=== PATIENT | male | born 1970 | race Two or more races ===

== ENCOUNTER 2017-12-03 13:14 | Inpatient (IN) | payer MEDICAID ==
[~2017-12-03] VITALS: Ht 175.3 cm; Wt 86.2 kg
[2017-12-03 14:04] LABS: Eosinophils # (auto) 0.1 uL; Eosinophils % (auto) 0.9 % (0.0-7.0); Hemoglobin 7.7 g/dL (13.5-17.5); Monocytes # (auto) 0.5 uL; Neutrophils # (auto) 4.2 uL; Platelet Count (auto) 188 10^3/uL (140-450)
[2017-12-03 14:06] LABS: Basophils # (auto) 0 uL; Basophils % (auto) 0.8 % (0.0-2.0); Hematocrit 22.8 % (41.0-53.0); Lymphocytes % (auto) 16.7 % (10.0-50.0); Mean Corpuscular Hemoglobin 30.2 pg (28.0-32.0); Mean Corpuscular Hgb Conc. 33.8 g/dL (32.0-36.0); Mean Corpuscular Volume 89.6 fL (80.0-100.0); Monocytes % (auto) 9.2 % (0.0-12.0); Neutrophils % (auto) 72.4 % (37.0-80.0); Nucleated Red Blood Cells % 0.4 %; Red Blood Cells 2.54 10^6/uL (4.5-5.90); Red Cell Distribution Width 17.2 % (11.8-14.3); White Blood Cell 5.8 10^3/uL (4.4-10.8)
[2017-12-03 14:23] LABS: Albumin 3.2 g/dL (3.4-5.0); BUN/Creatinine Ratio 9.3; Bilirubin, Total 0.2 mg/dL (0.2-1.0); Calcium 8.3 mg/dL (8.5-10.1); Total Protein 6.7 g/dL (6.4-8.2)
[2017-12-03] MEDS ORDERED: SODIUM CHLORIDE 0.9% 500 ML IVB ONE (15:28)
[2017-12-03] MEDS ORDERED: PANTOPRAZOLE 40 MG/10 ML VIAL IV STA (15:28)
[2017-12-03] MEDS ORDERED: IOHEXOL 300 MG/ML 100ML BOTTLE IJ ONE (15:31)
[2017-12-03] MEDS ORDERED: MORPHINE SULFATE 8mg/ml INJ SDV IV PRN ×2 (16:30)
[2017-12-03] MEDS ORDERED: DOCUSATE SOD 100 MG CAP PO PRN (16:30)
[2017-12-03] MEDS ORDERED: ONDANSETRON HCL 4 MG/2 ML VIAL IV PRN (16:30)
[2017-12-03] MEDS ORDERED: ALUM & MAG HYDROX-SIMETH LIQ(MAALOX) 30 ML PO PRN (16:30)
[2017-12-03] MEDS ORDERED: NITROGLYCERIN 0.4 MG SL TAB SL PRN (16:30)
[2017-12-03] MEDS ORDERED: TEMAZEPAM 15 MG CAP PO PRN (16:30)
[2017-12-03] MEDS ORDERED: cloNIDine HCL 0.1 MG TAB PO PRN (16:30)
[2017-12-03] MEDS ORDERED: HYDROcodone-ACET 5/325MG TAB PO PRN (16:30)
[2017-12-03] MEDS ORDERED: ACETAMINOPHEN 325 MG TAB PO PRN (16:30)
[2017-12-03 16:47] LABS: Basophils # (auto) 0 uL; Eosinophils # (auto) 0 uL; Hematocrit 22.9 % (41.0-53.0); Lymphocytes # (auto) 1.2 uL; Mean Corpuscular Hemoglobin 29.8 pg (28.0-32.0); Mean Corpuscular Volume 89.1 fL (80.0-100.0); Nucleated Red Blood Cells % 0.3 %; Red Blood Cells 2.57 10^6/uL (4.5-5.90)
[2017-12-03] MEDS: SODIUM CHLORIDE 0.9% 1,000 ML IV SCH (16:49)
[2017-12-03 16:52] LABS: INR 0.89 (0.9-1.15); Partial Thromboplastin Time 23.3 sec (22.64-33.71); Prothrombin Time 9.7 sec (9.37-12.3)
[2017-12-03] MEDS: BOOST PLUS 8 ounce PO SCH (18:01)
[2017-12-03 18:06] LABS: Basophils % (auto) 0.6 % (0.0-2.0); Eosinophils % (auto) 0.7 % (0.0-7.0); Hemoglobin 7.6 g/dL (13.5-17.5); Lymphocytes % (auto) 20.9 % (10.0-50.0); Mean Corpuscular Hgb Conc. 33.4 g/dL (32.0-36.0); Monocytes # (auto) 0.6 uL; Monocytes % (auto) 9.8 % (0.0-12.0); Platelet Count (auto) 185 10^3/uL (140-450); Red Cell Distribution Width 17.4 % (11.8-14.3); White Blood Cell 5.8 10^3/uL (4.4-10.8)
[2017-12-03 22:00] VITALS: BP 141/87
[2017-12-03] MEDS: FAMOTIDINE 20 MG TAB PO SCH (22:03)
[2017-12-03 22:31] LABS: Hemoglobin 6.7 g/dL (13.5-17.5)
[2017-12-03 22:45] VITALS: BP 141/87
[2017-12-04] VITALS (14 sets, daily range): BP systolic 99–133; BP diastolic 61–86
[2017-12-04 03:12] LABS: Urine WBC None Seen /hpf (0 - 3)
[2017-12-04 03:55] LABS: Urine Bacteria NONE SEEN /hpf (None Seen); Urine Blood Negative /uL (Negative); Urine Specific Gravity 1.016 (1.001-1.035)
[2017-12-04 08:11] LABS: Basophils # (auto) 0 uL; Basophils % (auto) 0.4 % (0.0-2.0); Eosinophils # (auto) 0.1 uL; Eosinophils % (auto) 1.5 % (0.0-7.0); Hematocrit 25.8 % (41.0-53.0); Hemoglobin 8.8 g/dL (13.5-17.5); Lymphocytes # (auto) 0.8 uL; Lymphocytes % (auto) 17.2 % (10.0-50.0); Mean Corpuscular Hemoglobin 29.8 pg (28.0-32.0); Mean Corpuscular Hgb Conc. 33.9 g/dL (32.0-36.0); Mean Corpuscular Volume 87.9 fL (80.0-100.0); Monocytes # (auto) 0.5 uL; Monocytes % (auto) 10.3 % (0.0-12.0); Neutrophils # (auto) 3.4 uL; Neutrophils % (auto) 70.6 % (37.0-80.0); Nucleated Red Blood Cells % 0.1 %; Platelet Count (auto) 162 10^3/uL (140-450); Red Blood Cells 2.94 10^6/uL (4.5-5.90); Red Cell Distribution Width 16.1 % (11.8-14.3); White Blood Cell 4.8 10^3/uL (4.4-10.8)
[2017-12-04] MEDS: MULTIPLE VITAMIN TAB PO SCH (09:57)
[2017-12-04] MEDS: PANTOPRAZOLE 40 MG/10 ML VIAL IV SCH (09:57)
[2017-12-04] MEDS: FAMOTIDINE 20 MG TAB PO SCH ×2 (09:57→21:21)
[2017-12-04] MEDS: BOOST PLUS 8 ounce PO SCH ×3 (09:57→18:00)
[2017-12-04] MEDS ORDERED: GOLYTELY 4L KIT PO ONE (14:00)
[2017-12-04] MEDS: SODIUM CHLORIDE 0.9% 1,000 ML IV SCH (21:30)
[2017-12-05] MEDS: SODIUM CHLORIDE 0.9% 1,000 ML IV SCH ×2 (01:46→22:05)
[2017-12-05] MEDS ORDERED: GOLYTELY 4L KIT PO ONE (06:00)
[2017-12-05 06:01] VITALS: BP 122/77
[2017-12-05 06:39] LABS: Hematocrit 27.5 % (41.0-53.0); Hemoglobin 9.4 g/dL (13.5-17.5)
[2017-12-05] MEDS: BOOST PLUS 8 ounce PO SCH ×3 (08:00→17:55)
[2017-12-05 09:00] VITALS: BP 139/81
[2017-12-05] MEDS ORDERED: diphenhdrAMINE HCL 50 MG/1 ML VL ONE (09:18)
[2017-12-05] MEDS: MULTIPLE VITAMIN TAB PO SCH (10:00)
[2017-12-05] MEDS: PANTOPRAZOLE 40 MG/10 ML VIAL IV SCH (10:00)
[2017-12-05] MEDS: FAMOTIDINE 20 MG TAB PO SCH ×2 (10:00→22:06)
[2017-12-05 12:14] VITALS: BP 132/85
[2017-12-05] MEDS: MIDAZOLAM HCL 5 MG/ML-1ML VIAL ONE ×3 (12:46→12:55)
[2017-12-05] MEDS: fentaNYL CITRATE 100 MCG/2 ML VL ONE ×2 (12:46→12:51)
[2017-12-05 16:27] VITALS: BP 123/78
[2017-12-05 22:03] VITALS: BP 119/73
[2017-12-06 05:30] VITALS: BP 120/68
[2017-12-06] MEDS: BOOST PLUS 8 ounce PO SCH ×2 (08:32→12:00)
[2017-12-06 09:00] VITALS: BP 130/82
[2017-12-06] MEDS: MULTIPLE VITAMIN TAB PO SCH (09:56)
[2017-12-06] MEDS: FAMOTIDINE 20 MG TAB PO SCH (09:57)
[2017-12-06] MEDS: PANTOPRAZOLE 40 MG/10 ML VIAL IV SCH (09:57)
[2017-12-06] MEDS: SODIUM CHLORIDE 0.9% 1,000 ML IV SCH (10:04)
== END 2017-12-06 12:00 | disposition home or self-care (01) | DRG 254 ==
LOC: ER 13:14 → TELE 13:15 → TELE-CENTR 21:35
PROVIDERS: ADMIT Internal Medicine; ATTEND Internal Medicine Pulmonary Disease
PROC: 30233N1 Transfusion of Nonautologous Red Blood Cells into Peripheral Vein, Percutaneous Approach (ICD-10-PCS; 2017-12-04)
PROC: 0DJD8ZZ Inspection of Lower Intestinal Tract, Via Natural or Artificial Opening Endoscopic (ICD-10-PCS; principal; 2017-12-05 12:37)
DX: K64.8 Other hemorrhoids (principal); J84.10 Pulmonary fibrosis, unspecified; E44.0 Moderate protein-calorie malnutrition; E83.51 Hypocalcemia; D62 Acute posthemorrhagic anemia; E88.09 Other disorders of plasma-protein metabolism, not elsewhere classified; K64.4 Residual hemorrhoidal skin tags; N40.0 Benign prostatic hyperplasia without lower urinary tract symptoms; F41.9 Anxiety disorder, unspecified; I12.9 Hypertensive chronic kidney disease with stage 1 through stage 4 chronic kidney disease, or unspecified chronic kidney disease; N18.2 Chronic kidney disease, stage 2 (mild); Z68.28 Body mass index [BMI] 28.0-28.9, adult
CPT/HCPCS: 36415; 36430; 71045; 74177; 80053; 81001; 83690; 83735; 84443; 85014; 85018; 85025; 85610; 85730; 86850; 86900; 86901; 86920; 93005; 94761; 96361; 96374; C9113; J2250

== ENCOUNTER 2018-01-07 09:35 | Emergency (ER) | payer MEDICAID ==
[~2018-01-07] VITALS: Ht 175.3 cm; Wt 81.6 kg
[2018-01-07 09:50] VITALS: BP 136/86
[2018-01-07 10:19] LABS: Basophils # (auto) 0 uL; Basophils % (auto) 0.7 % (0.0-2.0); Eosinophils # (auto) 0 uL; Eosinophils % (auto) 0.9 % (0.0-7.0); Hematocrit 38.7 % (41.0-53.0); Hemoglobin 12.9 g/dL (13.5-17.5); Lymphocytes # (auto) 1.2 uL; Lymphocytes % (auto) 26.4 % (10.0-50.0); Mean Corpuscular Hemoglobin 28.3 pg (28.0-32.0); Mean Corpuscular Hgb Conc. 33.3 g/dL (32.0-36.0); Mean Corpuscular Volume 84.9 fL (80.0-100.0); Monocytes # (auto) 0.3 uL; Monocytes % (auto) 7.3 % (0.0-12.0); Neutrophils # (auto) 2.9 uL; Neutrophils % (auto) 64.7 % (37.0-80.0); Nucleated Red Blood Cells % 0.1 %; Platelet Count (auto) 189 10^3/uL (140-450); Red Blood Cells 4.55 10^6/uL (4.5-5.90); Red Cell Distribution Width 15.1 % (11.8-14.3); White Blood Cell 4.6 10^3/uL (4.4-10.8)
[2018-01-07 10:39] LABS: Albumin 3.8 g/dL (3.4-5.0); BUN/Creatinine Ratio 14.3; Bilirubin, Total 0.2 mg/dL (0.2-1.0); Potassium 4.3 mmol/L (3.5-5.1); Total Protein 7.5 g/dL (6.4-8.2)
== END 2018-01-07 11:30 | disposition home or self-care (01) ==
LOC: ER 09:35
DX: K64.9 Unspecified hemorrhoids (principal); I12.9 Hypertensive chronic kidney disease with stage 1 through stage 4 chronic kidney disease, or unspecified chronic kidney disease; N18.9 Chronic kidney disease, unspecified
CPT/HCPCS: 36415; 80053; 85025; 99284; J7030

== ENCOUNTER 2018-08-11 16:01 | Emergency (ER) | payer MEDICAID ==
[~2018-08-11] VITALS: Ht 175.3 cm; Wt 86.2 kg
[2018-08-11 16:23] VITALS: BP 140/85
== END 2018-08-11 19:41 | disposition home or self-care (01) ==
LOC: ER 16:05
DX: K64.9 Unspecified hemorrhoids (principal); I11.0 Hypertensive heart disease with heart failure; I50.9 Heart failure, unspecified; D64.9 Anemia, unspecified

== ENCOUNTER 2018-08-16 18:13 | Inpatient (IN) | payer MEDICAID ==
[~2018-08-16] VITALS: Ht 175.3 cm; Wt 49.4 kg
[2018-08-16 19:18] LABS: Eosinophils # (auto) 0.1 uL; Monocytes # (auto) 0.5 uL; Neutrophils # (auto) 4.7 uL; Nucleated Red Blood Cells % 0.1 %; Red Cell Distribution Width 14.7 % (11.8-14.3)
[2018-08-16 19:20] LABS: Basophils # (auto) 0 uL; Basophils % (auto) 0.6 % (0.0-2.0); Eosinophils % (auto) 0.9 % (0.0-7.0); Hematocrit 19.8 % (41.0-53.0); Lymphocytes # (auto) 1.4 uL; Lymphocytes % (auto) 20.9 % (10.0-50.0); Mean Corpuscular Hemoglobin 27.4 pg (28.0-32.0); Mean Corpuscular Hgb Conc. 33.3 g/dL (32.0-36.0); Monocytes % (auto) 7.4 % (0.0-12.0); Neutrophils % (auto) 70.2 % (37.0-80.0); Platelet Count (auto) 276 10^3/uL (140-450); Red Blood Cells 2.42 10^6/uL (4.5-5.90); White Blood Cell 6.7 10^3/uL (4.4-10.8)
[2018-08-16 19:22] LABS: Hemoglobin 6.6 g/dL (13.5-17.5)
[2018-08-16 19:31] LABS: INR 0.92 (0.9-1.15); Partial Thromboplastin Time 25.9 sec (23.78-33.04); Prothrombin Time 9.9 sec (9.27-12.13)
[2018-08-16] MEDS ORDERED: SODIUM CHLORIDE 0.9% 1,000 ML IV ONE ×2 (19:45→20:00)
[2018-08-16] MEDS ORDERED: PANTOPRAZOLE 40 MG/10 ML VIAL IV ONE (19:45)
[2018-08-16] MEDS ORDERED: PHYTONADIONE (VIT K)10 MG/ML 1ML VIAL SUBCUT ONE (19:45)
[2018-08-16 19:49] LABS: Albumin 3.1 g/dL (3.4-5.0); Calcium 8.1 mg/dL (8.5-10.1); Potassium 3.4 mmol/L (3.5-5.1)
[2018-08-16 19:52] LABS: BUN/Creatinine Ratio 10.2; Bilirubin, Total 0.2 mg/dL (0.2-1.0); Total Protein 6.9 g/dL (6.4-8.2)
[2018-08-16 22:13] VITALS: BP 134/83
[2018-08-17] MEDS ORDERED: NITROGLYCERIN 0.4 MG SL TAB SL PRN (00:45)
[2018-08-17] MEDS: SODIUM CHLORIDE 0.9% 1,000 ML IV SCH ×2 (00:45→12:14)
[2018-08-17] MEDS ORDERED: MORPHINE SULFATE 4 MG/ML SYR/VIAL IV PRN (00:45)
[2018-08-17] MEDS ORDERED: ONDANSETRON HCL 4 MG/2 ML VIAL IV PRN (00:45)
--- NOTE | 2018-08-17 03:07 | NUR ---
Telemetry admit from [facility] admitted to Telemetry unit after SBAR received. Patient oriented to Arleen shaw RN, unit, room, bed, and unit policies regarding patient care and visiting hours. Patient now on continuous telemetry monitoring, tele box # 26 and telemetry reading on arrival to unit is SR 87. Patient placed on bedside oxygen, weighed by bedscale and encouraged to call if they need something. All questions and concerns addressed, patient verbalized understanding. Note: Came per wheelchair awake alert oriented x 4 not in respiratory distress.
[2018-08-17 03:10] VITALS: BP 118/73
[2018-08-17 05:00] VITALS: BP 118/73
[2018-08-17 05:55] LABS: Hematocrit 22.8 % (41.0-53.0); Hemoglobin 7.5 g/dL (13.5-17.5)
--- NOTE | 2018-08-17 07:12 | NUR ---
Report given to Dino Negron to assume care, to follow-up to the hospitalist the new result of hgb. of 7.5.
--- NOTE | 2018-08-17 07:20 | NUR ---
OPENING NOTE Assumed care of patient from NOC RNMarilyn. Patient awake and alert with no S/S of distress/SOB or pain. Instructed on POC and to call for assist PRN, verbalized understanding. Bed in lowest, locked position with side rails up x2 and call light within reach. Will continue to monitor for changes Q1hr and PRN.
[2018-08-17] MEDS ORDERED: INFLUENZA QUAD 2018-2019 0.5 ML SYRG IM ONE (08:15)
[2018-08-17 09:00] VITALS: BP 118/75
[2018-08-17] MEDS: PANTOPRAZOLE 40 MG/10 ML VIAL IV SCH ×2 (11:10→21:23)
[2018-08-17 12:05] LABS: Urine WBC None Seen /hpf (0 - 3)
[2018-08-17 12:18] LABS: Urine Bacteria NONE SEEN /hpf (None Seen); Urine Blood Negative /uL (Negative); Urine Mucus FEW (None Seen)
[2018-08-17] MEDS ORDERED: POTASSIUM CHL 20 Meq TABLET PO ONE (12:30)
[2018-08-17 12:44] VITALS: BP 120/76
[2018-08-17 16:46] LABS: Basophils # (auto) 0 uL; Lymphocytes # (auto) 1.1 uL; Monocytes # (auto) 0.4 uL; Neutrophils # (auto) 4.6 uL; White Blood Cell 6.2 10^3/uL (4.4-10.8)
[2018-08-17 16:48] LABS: Basophils % (auto) 0.3 % (0.0-2.0); Eosinophils # (auto) 0 uL; Eosinophils % (auto) 0.7 % (0.0-7.0); Hematocrit 24.3 % (41.0-53.0); Hemoglobin 8.3 g/dL (13.5-17.5); Lymphocytes % (auto) 18.1 % (10.0-50.0); Mean Corpuscular Hemoglobin 28.7 pg (28.0-32.0); Mean Corpuscular Hgb Conc. 33.9 g/dL (32.0-36.0); Mean Corpuscular Volume 84.6 fL (80.0-100.0); Monocytes % (auto) 6.6 % (0.0-12.0); Neutrophils % (auto) 74.3 % (37.0-80.0); Platelet Count (auto) 228 10^3/uL (140-450); Red Blood Cells 2.88 10^6/uL (4.5-5.90); Red Cell Distribution Width 15.4 % (11.8-14.3)
--- NOTE | 2018-08-17 16:50 | NUR ---
FLU VACCINE Patient has decided to opt of receiving the flu vaccine at this time.
[2018-08-17 18:00] VITALS: BP 123/72
--- NOTE | 2018-08-17 19:20 | NUR ---
CLOSING NOTE Endorsed care of patient to NOC RN, Marilyn.
--- NOTE | 2018-08-17 19:34 | NUR ---
Called/paged Dr. Galdamez called re:patients diet . Waiting for call back. Continue care.
--- NOTE | 2018-08-17 19:34 | NUR ---
Opening Shift Note Assumed care of patient, awake and alert. No S/S of distress/SOB or pain. Instructed on POC and to call for assist PRN, will continue to monitor for changes Q1hr and PRN.
[2018-08-17 21:55] VITALS: BP 128/75
[2018-08-18 04:46] VITALS: BP 116/69
[2018-08-18] MEDS: SODIUM CHLORIDE 0.9% 1,000 ML IV SCH ×3 (05:15→22:45)
[2018-08-18 06:37] LABS: Basophils # (auto) 0 uL; Eosinophils # (auto) 0.1 uL; Monocytes # (auto) 0.5 uL; Neutrophils # (auto) 4.3 uL; Nucleated Red Blood Cells % 0.1 %; Red Blood Cells 2.92 10^6/uL (4.5-5.90); White Blood Cell 5.9 10^3/uL (4.4-10.8)
[2018-08-18 06:48] LABS: Basophils % (auto) 0.2 % (0.0-2.0); Eosinophils % (auto) 1.5 % (0.0-7.0); Hematocrit 24.6 % (41.0-53.0); Hemoglobin 8.3 g/dL (13.5-17.5); Lymphocytes % (auto) 16.8 % (10.0-50.0); Mean Corpuscular Hemoglobin 28.4 pg (28.0-32.0); Mean Corpuscular Hgb Conc. 33.6 g/dL (32.0-36.0); Mean Corpuscular Volume 84.3 fL (80.0-100.0); Monocytes % (auto) 8.5 % (0.0-12.0); Platelet Count (auto) 239 10^3/uL (140-450); Red Cell Distribution Width 15.4 % (11.8-14.3)
[2018-08-18 06:54] LABS: Potassium 4.1 mmol/L (3.5-5.1)
[2018-08-18 06:58] LABS: BUN/Creatinine Ratio 8.3; Calcium 8.2 mg/dL (8.5-10.1); Magnesium 2.1 mg/dL (1.6-2.6)
--- NOTE | 2018-08-18 07:26 | NUR ---
Report given to Dino Negron to assume care.
[2018-08-18 08:00] VITALS: BP 112/71
[2018-08-18] MEDS: PANTOPRAZOLE 40 MG/10 ML VIAL IV SCH ×2 (10:16→21:16)
[2018-08-18 12:00] VITALS: BP 138/77
[2018-08-18 16:00] VITALS: BP 119/77
--- NOTE | 2018-08-18 19:02 | NUR ---
CLOSING NOTE Endorsed care of patient to NOC RN, Marilyn.
[2018-08-18 21:35] VITALS: BP 122/74
[2018-08-19 04:12] VITALS: BP 92/54
[2018-08-19 06:29] LABS: Basophils # (auto) 0 uL; Eosinophils # (auto) 0.1 uL; Lymphocytes # (auto) 1.1 uL; Monocytes # (auto) 0.6 uL; Neutrophils # (auto) 5.2 uL
[2018-08-19 06:40] LABS: Basophils % (auto) 0.2 % (0.0-2.0); Eosinophils % (auto) 1.6 % (0.0-7.0); Hematocrit 25.2 % (41.0-53.0); Hemoglobin 8.5 g/dL (13.5-17.5); Lymphocytes % (auto) 15.7 % (10.0-50.0); Mean Corpuscular Hemoglobin 28.3 pg (28.0-32.0); Mean Corpuscular Hgb Conc. 33.7 g/dL (32.0-36.0); Monocytes % (auto) 8.1 % (0.0-12.0); Neutrophils % (auto) 74.4 % (37.0-80.0); Platelet Count (auto) 264 10^3/uL (140-450); Red Cell Distribution Width 15.8 % (11.8-14.3)
[2018-08-19 07:05] LABS: Potassium 4.4 mmol/L (3.5-5.1)
[2018-08-19 07:09] LABS: BUN/Creatinine Ratio 9.1; Calcium 8.4 mg/dL (8.5-10.1); Magnesium 2.1 mg/dL (1.6-2.6)
[2018-08-19] MEDS ORDERED: INFLUENZA QUAD 2018-2019 0.5 ML SYRG IM ONE (07:30)
--- NOTE | 2018-08-19 07:37 | NUR ---
Report given to Paulina Fuentes to assume care.
[2018-08-19 08:00] VITALS: BP 105/64
--- NOTE | 2018-08-19 08:00 | NUR ---
Opening Shift Note Assumed care of patient, awake and alert. No S/S of distress/SOB or pain. Instructed on POC and to call for assist PRN, will continue to monitor for changes Q1hr and PRN. Bed is in the lowest position and call light is within reach.
[2018-08-19] MEDS ORDERED: SODIUM CHLORIDE LOCK 10 ML ONE (08:37)
[2018-08-19] MEDS ORDERED: fentaNYL CITRATE 100 MCG/2 ML VL ONE (08:37)
[2018-08-19] MEDS ORDERED: diphenhdrAMINE HCL 50 MG/1 ML VL ONE (08:37)
[2018-08-19] MEDS ORDERED: MIDAZOLAM HCL 5 MG/ML-1ML VIAL ONE (08:37)
[2018-08-19] MEDS: PANTOPRAZOLE 40 MG/10 ML VIAL IV SCH (09:14)
--- NOTE | 2018-08-19 09:30 | NUR ---
Patient off of unit for procedure
[2018-08-19] MEDS ORDERED: LIDOCAINE VISCOUS 2% 15ML UD ONE (10:04)
--- NOTE | 2018-08-19 10:40 | NUR ---
Patient back on unit from procedure
[2018-08-19] MEDS: SODIUM CHLORIDE 0.9% 1,000 ML IV SCH (10:55)
[2018-08-19 12:00] VITALS: BP 120/74
[2018-08-19 15:18] VITALS: BP 120/74
--- NOTE | 2018-08-19 15:50 | NUR ---
Discharge instructions given as ordered. Encourage to follow up with PCP in one week as instructed. Patient to follow up with Primary MD in 1-2 weeks Consider referral to higher level of care for capsule endoscopy procedure. Go to [facility] ER if rectal bleeding recurs. [phone] [address] [place] [address] Patient has no primary MD & No insurance or Emergency [facility]: Patient reffered to [facility]. Patient given uret care coupon Sunday-Sunday 8A-8P [phone] ext [phone] [id number] Patient also referred to: -[facility] [phone] [id number] [facility] [id number] -[facility]-[phone] [address] [place] [address] All questions and concerns addressed. Patient verbalized understanding. Medication reconciliation form completed and copy given to patient. No Home medications held in Pharmacy returned to patient, and no needed vaccines. IV removed with catheter intact, pressure dressing applied. Telemetry unit returned to [facility].
--- NOTE | 2018-08-19 16:05 | NUR ---
Patient refuses wheelchair. Patient ambulates off of unit with all personal belongings, accompanied by staff. No distress noted at time of departure.
== END 2018-08-19 16:05 | disposition home or self-care (01) | DRG 253 ==
LOC: ER 18:13 → TELE 08-17 00:54 → TELE-WESTW 08-17 03:07
PROVIDERS: ADMIT Nurse Practitioner; ATTEND Internal Medicine
PROC: 30233N1 Transfusion of Nonautologous Red Blood Cells into Peripheral Vein, Percutaneous Approach (ICD-10-PCS; 2018-08-19)
PROC: 0DJ08ZZ Inspection of Upper Intestinal Tract, Via Natural or Artificial Opening Endoscopic (ICD-10-PCS; principal; 2018-08-19 10:00)
DX: K62.5 Hemorrhage of anus and rectum (principal); E44.0 Moderate protein-calorie malnutrition; N18.3 Chronic kidney disease, stage 3 (moderate); E83.51 Hypocalcemia; D64.9 Anemia, unspecified; E87.6 Hypokalemia; I12.9 Hypertensive chronic kidney disease with stage 1 through stage 4 chronic kidney disease, or unspecified chronic kidney disease; K57.30 Diverticulosis of large intestine without perforation or abscess without bleeding; Z68.1 Body mass index [BMI] 19.9 or less, adult
CPT/HCPCS: 36415; 36430; 74176; 80048; 80053; 81001; 82270; 83735; 85014; 85018; 85025; 85610; 85730; 86850; 86900; 86901; 86920; 93005; 96361; 96374; A6257; C9113; G0378; J2250; J3430

== ENCOUNTER 2018-10-16 09:38 | Emergency (ER) | payer MEDICAID ==
[~2018-10-16] VITALS: Ht 172.7 cm; Wt 83.9 kg
[2018-10-16 10:12] VITALS: BP 109/73
[2018-10-16] MEDS ORDERED: IBUPROFEN 800 MG TAB PO ONE (11:45)
[2018-10-16] MEDS ORDERED: cefTRIAXone SOD 1,000 MG VL IM ONE (11:45)
== END 2018-10-16 12:32 | disposition home or self-care (01) ==
LOC: ER 09:43
DX: L03.115 Cellulitis of right lower limb (principal); I10 Essential (primary) hypertension
CPT/HCPCS: 93971; 96372; 99284; J0696